=== PATIENT | male | born 1990 | race Two or more races ===

== ENCOUNTER 2021-09-12 17:12 | Emergency (ER) | payer OTHER ==
[~2021-09-12] VITALS: Ht 177.8 cm; Wt 95.3 kg
[2021-09-12 17:17] VITALS: BP 137/61
[2021-09-12 18:35] LABS: Albumin 4.1 g/dL (3.4-5.0); Calcium 8.6 mg/dL (8.5-10.1); Potassium 3.8 mmol/L (3.5-5.1)
[2021-09-12 18:38] LABS: Eosinophils # (auto) 0.6 10 ^3/uL (0-0.8); Hematocrit 42.6 % (41.0-53.0); Hemoglobin 14.3 g/dL (13.5-17.5); Mean Corpuscular Hemoglobin 26.2 pg (28.0-32.0); Monocytes # (auto) 0.7 10 ^3/uL (0-1.3); Neutrophils % (auto) 53.1 % (37.0-80.0); Nucleated Red Blood Cells % 0.1 %; Red Cell Distribution Width 13.8 % (11.8-14.3)
[2021-09-12 18:40] LABS: Basophils # (auto) 0.1 10 ^3/uL (0-0.2); Basophils % (auto) 0.6 % (0.0-2.0); Bilirubin, Total 0.5 mg/dL (0.2-1.0); Eosinophils % (auto) 7.1 % (0.0-7.0); Lymphocytes # (auto) 2.8 10 ^3/uL (0.4-5.4); Lymphocytes % (auto) 31.1 % (10.0-50.0); Mean Corpuscular Hgb Conc. 33.6 g/dL (32.0-36.0); Monocytes % (auto) 8.1 % (0.0-12.0); Neutrophils # (auto) 4.8 10 ^3/uL (1.6-8.6); Red Blood Cells 5.46 10^6/uL (4.5-5.90); Total Protein 7.4 g/dL (6.4-8.2)
== END 2021-09-12 20:44 | disposition home or self-care (01) ==
LOC: ER 17:12
DX: R00.2 Palpitations (principal); F17.210 Nicotine dependence, cigarettes, uncomplicated; F12.10 Cannabis abuse, uncomplicated; F14.10 Cocaine abuse, uncomplicated
CPT/HCPCS: 36415; 80053; 83735; 84484; 85025; 93005